=== PATIENT | female | born 1955 | race Caucasian/White ===

== ENCOUNTER 2016-07-09 09:09 | Day surgery (SDC) | payer BC, OTHER ==
[2016-07-08 15:36] VITALS: BMI 40.6
[2016-07-09] MEDS ORDERED: PROPOFOL 20 ML ONE ×2 (10:46)
[2016-07-09] MEDS ORDERED: LIDOCAINE HCL/PF 1% SDV 5ML VIAL ONE (10:46)
[2016-07-09 11:43] VITALS: TEMP 97.2
[2016-07-09 13:26] VITALS: BP 112/61; PULSE 86
--- NOTE | 2016-07-12 13:17 | PATH ---
Surgical Pathology Report Patient Name: MOE SIMEON [facility]. Rec. #: [id number] /Age/Gender: 1955 (Age: 60) / F Account: [id number] Location: [facility]-ENDOSCOPY Taken: 07/09/2016 Received: 07/09/2016 Reported: 07/12/2016 Physicians: Otto Vernon M.D. Specimen(s) Received BX RESIDUAL POLYP RECTUM Clinical History Rectal polyp Final Diagnosis RECTUM, RESIDUAL POLYP, BIOPSY: FRAGMENTS OF HYPERPLASTIC POLYP WITH FOCAL ADENOMATOUS CHANGE. Electronically Signed Arie Adams M.D. Gross Description Received in formalin, labeled "biopsy residual polyp rectum" is a witt, irregular portion of soft tissue measuring 0.3 cm in greatest dimension. The specimen is submitted in toto in one cassette. /07/09/201607/09/2016
== END 2016-07-09 12:25 | disposition home or self-care (01) ==
LOC: JASU-ENDO 09:09
PROVIDERS: ATTEND Internal Medicine Gastroenterology
PROC: 0DBP8ZX Excision of Rectum, Via Natural or Artificial Opening Endoscopic, Diagnostic (ICD-10-PCS; principal; 2016-07-09 10:30)
DX: Z86.010 Personal history of colon polyps (principal); D37.5 Neoplasm of uncertain behavior of rectum
CPT/HCPCS: 88305-TC

== ENCOUNTER 2016-12-10 08:31 | Day surgery (SDC) | payer BC, OTHER ==
[2016-12-09 11:54] VITALS: BMI 37.3
[2016-12-10 10:34] VITALS: TEMP 97.8
[2016-12-10] MEDS ORDERED: PROPOFOL 20 ML ONE ×2 (10:39)
[2016-12-10 11:33] VITALS: BP 133/67; PULSE 89
--- NOTE | 2016-12-13 13:24 | PATH ---
Surgical Pathology Report Patient Name: MOE SIMEON [facility]. Rec. #: [id number] /Age/Gender: 1955 (Age: 61) / F Account: [id number] Location: [facility]-ENDOSCOPY Taken: 12/10/2016 Received: 12/10/2016 Reported: 12/13/2016 Physicians: Otto Vernon M.D. Specimen(s) Received RESIDUAL RECTAL POLYP Clinical History History of rectal polyp and cancer Diverticulosis, redundant colon, residual colon polyp at rectal junction Final Diagnosis RECTUM, RESIDUAL POLYP, POLYPECTOMY: FRAGMENTS OF POLYP WITH MIXED HYPERPLASTIC AND ADENOMATOUS FEATURES AND CAUTERY ARTIFACT. FOCAL FRAGMENTS OF BENIGN SQUAMOUS EPITHELIUM WITH CAUTERY ARTIFACT. Electronically Signed Arie Adams M.D. Gross Description Received in formalin, labeled "residual rectal polyp" are 3 witt, irregular portions of soft tissue measuring 0.1-0.3 cm in greatest dimension. The specimens are submitted in toto in one cassette. [facility]/12/10/2016 [facility]/12/10/2016
== END 2016-12-10 11:39 | disposition home or self-care (01) ==
LOC: JASU-ENDO 08:31
PROVIDERS: ATTEND Internal Medicine Gastroenterology
PROC: 0D5P8ZZ Destruction of Rectum, Via Natural or Artificial Opening Endoscopic (ICD-10-PCS; principal; 2016-12-10 09:30)
DX: Z12.11 Encounter for screening for malignant neoplasm of colon (principal); Z86.010 Personal history of colon polyps; K57.30 Diverticulosis of large intestine without perforation or abscess without bleeding; K64.8 Other hemorrhoids; K63.89 Other specified diseases of intestine; K62.1 Rectal polyp
CPT/HCPCS: 88305-TC